=== PATIENT | male | born 1940 | race Caucasian/White ===

== ENCOUNTER 2016-12-19 18:40 | Emergency (ER) | payer MEDICARE, BC ==
[2016-12-19 18:47] VITALS: BP 150/77
[2016-12-19] MEDS ORDERED: HYDROmorphone 1 MG/ML Syringe IVPUSH ONE ×2 (19:13→20:41)
--- NOTE | 2016-12-19 19:32 | EDM.PDOC ---
[id number] 4d fell off ladder Time Seen by Provider: 12/19/16 19:00 Source of Information: Reports: Patient, Family ( and son present) History Limitations: Reports: No limitations - History of Present Illness INITIAL COMMENTS - FREE TEXT/NARRATIVE: John is a 76 yo male who presents to the ER via private vehicle after falling about 6 ft from a ladder. States this evening he was outside trying to cut down some trees and ended up slipping and falling to the ground. Denies any head trauma or loss of consciousness. States he had the wind knocked out of him and had some difficulty breathing initially. States a passerby saw him fall and assisted him with getting up. States he has a lot of discomfort to the left rib cage. States when he takes a deep breath the pain intensifies. States the pain is about a 5 out of 10 currently. He recently underwent lumbar surgery about 3 weeks ago and has been doing really well post surgery. States he was having a lot of radicular symptoms into his feet and hasn't had any since surgery. Denies any at this time as well s/p fall. Onset: today Onset Date: 12/19/16 Onset Time: 18:00 Duration: Constant Location: Reports: chest (left lateral rib cage. ) Quality: Reports: Sharp Improves with: Reports: Immobilization, Rest Worsens with: Reports: Breathing, Movement Left Chest Pain Score (Numeric/FACES): 5 - Related Data Allergies Allergy/AdvReac Type Severity Reaction Status Date / Time No Known Allergies Allergy Verified 12/19/16 18:49 Home Meds: Home Meds Acetaminophen [Tylenol Extra Strength] 500 mg PO QID 12/19/16 [History] Cholecalciferol (Vitamin D3) [Vitamin D] 5,000 unit PO DAILY 12/19/16 [History] Ibuprofen [Advil] 1 tab PO QID 12/19/16 [History] Past Medical History - Past Health History Medical/Surgical History: Denies Medical/Surgical History Cardiovascular History: Reports: None Respiratory History: Reports: Pneumonia, recurrent Gastrointestinal History: Reports: None Musculoskeletal History: Reports: None Neurological History: Reports: None Endocrine/Metabolic History: Reports: Vitamin D deficiency Dermatologic History: Reports: Eczema - Past Surgical History GI Surgical History: Reports: Colonoscopy Neurological Surgical History: Reports: Discectomy, Lumbar spine Musculoskeletal Surgical History: Reports: Other (see below) Other Musculoskeletal Surgeries/Procedures:: lumbar disc surgery Social & Family History - Family History Family Medical History: Noncontributory - Tobacco Use Smoking Status *Q: Former Smoker Years of Tobacco use: 20 Used Tobacco, but Quit: Yes Month Tobacco Last Used: 30 yrs - Caffeine Use Caffeine Use: Reports: Coffee - Recreational Drug Use Recreational Drug Use: Yes ED ROS GENERAL - Review of Systems Review Of Systems: See Below Constitutional: Reports: no symptoms HEENT: Reports: No symptoms Respiratory: Reports: Shortness of Breath, Pleuritic Chest Pain Cardiovascular: Reports: No symptoms Endocrine: Reports: no symptoms GI/Abdominal: Reports: No symptoms : Reports: no symptoms Musculoskeletal: Reports: other (rib pain). Denies: back pain, leg pain Neurological: Reports: Difficulty Walking. Denies: Headache, Numbness, Paresthesia, Tingling Psychiatric: Reports: No symptoms ED EXAM, GENERAL - Physical Exam Exam: See Below Exam Limited By: No limitations General Appearance: alert, mild distress Eye Exam: bilateral eye: EOMI, normal inspection Ears: normal external exam, normal canal, hearing grossly normal, normal TMs Nose: normal inspection, no blood Throat/Mouth: Normal inspection, Normal lips, Normal gums, Normal oropharynx, Normal voice, No airway compromise Head: atraumatic, normocephalic. No: facial swelling, facial tenderness Neck: normal inspection, supple. No: tender lateral, tender midline Respiratory/Chest: no respiratory distress, lungs clear, normal breath sounds, no accessory muscle use, other (tenderness with palpation to lower left lateral rib cage. ). No: splinting GI/Abdominal: normal bowel sounds, soft, non tender, no organomegaly, no abnormal bruit, no mass Extremities: normal inspection Neurological: alert, oriented, normal cognition, no motor/sensory deficits Psychiatric: normal affect, normal mood Skin Exam: Warm, Dry, Intact, Normal color, No rash, Other (small abrasion to left anterior rib cage) Course - Vital Signs Last Recorded V/S: Last Vital Signs Temp 98.3 F 12/19/16 18:44 Pulse 69 12/19/16 18:44 Resp 20 12/19/16 18:44 BP 150/77 H 12/19/16 18:44 Pulse Ox 97 12/19/16 18:44 - Orders/Labs/Meds Orders: Active Orders 24 hr Category Date Time Status Abdomen Pelvis wo Cont [CT] Stat Exams 12/19/16 19:21 Taken Chest wo Cont [CT] Stat Exams 12/19/16 19:20 Taken Labs: Laboratory Tests 12/19/16 12/19/16 Range/Units 19:03 19:03 WBC 15.4 H (5.0-10.0) 10^3/uL RBC 5.18 (4.50-6.00) 10^6/uL Hgb 16.0 (14.0-18.0) g/dL Hct 49.1 (40.0-54.0) % MCV 94.8 H (82.0-94.0) fL MCH 30.9 (27.0-32.0) pg MCHC 32.6 L (33.0-38.0) g/dL RDW Coeff of Floyd 14.9 (11.0-15.0) % Plt Count 413 H (150-400) 10^3/uL Neut % (Auto) 82.9 (35-85) % Lymph % (Auto) 8.3 L (10-55) % Robeson % (Auto) 4.8 (0-16) % Eos % (Auto) 3.3 (0-5) % Baso % (Auto) 0.7 (0-3) % Neut # (Auto) 12.74 H (1.80-7.00) 10^3/uL Lymph # (Auto) 1.28 (1.00-4.80) 10^3/uL Robeson # (Auto) 0.74 (0.00-0.80) 10^3/uL Eos # (Auto) 0.51 H (0.00-0.45) 10^3/uL Baso # (Auto) 0.10 10^3/uL Sodium 142 (136-145) mEq/L Potassium 5.3 H D (3.5-5.0) mEq/L Chloride 104 (98-106) mEq/L Carbon Dioxide 30 (21-32) mmol/L BUN 23 H (7-18) mg/dL Creatinine 1.3 (0.7-1.3) mg/dL Est Cr Clr Drug Dosing 45.31 mL/min Estimated GFR (MDRD) 53 L (>=60) mL/min Glucose 101 H (75-99) mg/dL Calcium 9.0 (8.4-10.1) mg/dL Total Bilirubin 0.3 (0.0-1.0) mg/dL AST 19 (15-37) U/L ALT 28 (12-78) U/L Alkaline Phosphatase 129 H (46-116) U/L Total Protein 7.5 (6.4-8.2) g/dL Albumin 3.8 (3.4-5.0) g/dL Meds: Medications Discontinued Medications Generic Name Dose Route Start Last Admin Trade Name Mulugeta PRN Reason Stop Dose Admin Hydromorphone HCl 0.5 mg 12/19/16 19:13 12/19/16 19:18 Dilaudid IVPUSH 12/19/16 19:14 0.5 mg ONETIME ONE Administration Hydromorphone HCl 0.5 mg 12/19/16 20:41 12/19/16 20:42 Dilaudid IVPUSH 12/19/16 20:42 0.5 mg ONETIME ONE Administration Departure - Departure Time of Disposition: 21:10 Disposition: Home, Self-Care 01 Condition: good Clinical Impression: Contusion of rib on left side Qualifiers: Encounter type: initial encounter Qualified Code(s): S20.212A - Contusion of left front wall of thorax, initial encounter Fall from ladder Qualifiers: Encounter type: initial encounter Qualified Code(s): W11.XXXA - Fall on and from ladder, initial encounter Instructions: Rib Contusion Referrals: Ney Ellis MD [Primary Care Provider] - 1 Week Forms: ED Department Discharge Additional Instructions: 1) Recommend resting tonight. 2) Apply ice to left side along ribs, 20 minutes at a time 3) Encourage taking deep breaths as tolerated. 4) Use walker at home to refrain from falling while on medications 5) Use pain medications as directed until able to tolerate pain with deep inspirations or coughing 6) No work tomorrow and recommend taking off as well, you will be sore thru the weekend. 7) If any concerns at all, recommend returning to ER. May call since you live so far away if any questions as well [phone] 8) Please do not wrap chest with malu wrap for discomfort, will constrict expansion of lungs. 9) Advise recheck early next week with Dr. Ellis - Problem List & Annotations (1) Contusion of rib on left side SNOMED Code(s): 039779884 Code(s): S20.212A - CONTUSION OF LEFT FRONT WALL OF THORAX, INITIAL ENCOUNTER Status: Acute Qualifiers: Encounter type: initial encounter Qualified Code(s): S20.212A - Contusion of left front wall of thorax, initial encounter (2) Fall from ladder SNOMED Code(s): 11748593, 600362277 Code(s): W11.XXXA - FALL ON AND FROM LADDER, INITIAL ENCOUNTER Status: Acute Qualifiers: Encounter type: initial encounter Qualified Code(s): W11.XXXA - Fall on and from ladder, initial encounter - Problem List Review Problem List Initiated/Reviewed/Updated: Yes - My Orders Last 24 Hours: My Active Orders 12/19/16 19:20 Chest wo Cont [CT] Stat 12/19/16 19:21 Abdomen Pelvis wo Cont [CT] Stat - Assessment/Plan Last 24 Hours: My Active Orders 12/19/16 19:20 Chest wo Cont [CT] Stat 12/19/16 19:21 Abdomen Pelvis wo Cont [CT] Stat Plan: Radiologist confirmed no rib fracture or acute injuries noted on CT scan. Lung nodules noted and recommend follow up in 1 year. Will have recheck with Dr. Ellis next week as well. Laboratory work was reviewed. John was given intravenous Dilaudid 0.5mg twice in the ER and did quite well. We were able to get him up ambulating tonight. With certain movements and positional changes he still has some left sided discomfort but tolerable. Discussed further treatment and he requested going home tonight. His felt this would be acceptable as well. Will discharge at this time and he will use his pain medications as directed from recent back surgery.
== END 2016-12-19 21:36 | disposition home or self-care (01) ==
LOC: CC.ED 18:40
DX: S20.212A Contusion of left front wall of thorax, initial encounter (principal); Z87.01 Personal history of pneumonia (recurrent); Z79.899 Other long term (current) drug therapy; Z87.891 Personal history of nicotine dependence; W11.XXXA Fall on and from ladder, initial encounter
CPT/HCPCS: 36415; 71250; 74176; 80053; 85025; 96374; 96376; 99284; J1170

== ENCOUNTER 2017-01-24 11:10 | Inpatient (IN) | payer MEDICARE, BC ==
--- NOTE | 2017-01-24 11:42 | EDM.PDOC ---
ED HPI GENERAL MEDICAL PROBLEM - General Chief Complaint: Chest Pain Stated Complaint: chest pain Time Seen by Provider: 01/24/17 11:36 Source of Information: Reports: Patient, Family () History Limitations: Reports: No Limitations - History of Present Illness INITIAL COMMENTS - FREE TEXT/NARRATIVE: TRINA IS A 76 YO MALE WHO PRESENTS TO THE ER WITH COMPLAINTS OF LEFT CHEST PAIN. STATES THE PAIN STARTED IN HIS LEFT CHEST A COUPLE DAYS AGO. ADMITS HE HAS BEEN HAVING HIGH BLOOD PRESSURE READINGS RECENTLY WELL. STATES THE PAIN GETS WORTH WITH AMBULATION. ADMITS HE DOES HAVE SOME DISCOMFORT INTO HIS LEFT ARM WELL. HAD A FALL FROM A LADDER ABOUT A MONTH AGO AND HAD LEFT LATERAL RIB PAIN BUT DOESN'T THINK THIS HAS ANYTHING TO DO WITH IT. STATES WHILE AT REST THE PAIN ISN'T SO BAD TODAY, WHILE AT REST HE STATES HIS PAIN IS 2 OUT OF 10. IF UP AND WALKING WILL GET TO A 6-7 OUT OF 10. ADMITS HE TOOK 2 ADVIL THIS MORNING WHICH HELPED. HAS NOTICED HIM TO NOT BE ACTIVE THE LAST FEW DAYS. IF HE TAKES A DEEP BREATH IT WILL CAUSE THE PAIN TO WORSEN WELL. Onset: Unknown/Unsure Location: Reports: Chest Quality: Reports: Sharp Severity: Moderate Context: Reports: Activity, Lifting Left Chest Pain Score (Numeric/FACES): 2 - Related Data Allergies Allergy/AdvReac Type Severity Reaction Status Date / Time aspirin Allergy Bleeding Verified 01/24/17 12:00 Home Meds: Home Meds Acetaminophen [Tylenol Extra Strength] 500 mg PO QID 12/19/16 [History] Cholecalciferol (Vitamin D3) [Vitamin D] 5,000 unit PO DAILY 12/19/16 [History] Ibuprofen [Advil] 1 tab PO QID 12/19/16 [History] Past Medical History - Past Health History Medical/Surgical History: Denies Medical/Surgical History Cardiovascular History: Reports: None Respiratory History: Reports: Pneumonia, Recurrent Gastrointestinal History: Reports: None Musculoskeletal History: Reports: None Neurological History: Reports: None Endocrine/Metabolic History: Reports: Vitamin D Deficiency Dermatologic History: Reports: Eczema - Past Surgical History Neurological Surgical History: Reports: Discectomy, Lumbar Spine Musculoskeletal Surgical History: Reports: Other (See Below) Social & Family History - Family History Family Medical History: Noncontributory - Tobacco Use Smoking Status *Q: Former Smoker Years of Tobacco use: 20 Used Tobacco, but Quit: Yes Month Tobacco Last Used: 30 yrs - Caffeine Use Caffeine Use: Reports: Coffee - Recreational Drug Use Recreational Drug Use: Yes ED ROS GENERAL - Review of Systems Review Of Systems: See Below Constitutional: Reports: Weakness, Decreased Appetite. Denies: Fever, Chills, Night Sweats, Diaphoresis HEENT: Reports: No Symptoms Respiratory: Denies: Shortness of Breath, Wheezing, Cough Cardiovascular: Reports: Chest Pain, Blood Pressure Problem (JUST RECENTLY). Denies: Dyspnea on Exertion, Edema, Lightheadedness, Palpitations GI/Abdominal: Reports: No Symptoms ED EXAM, GENERAL - Physical Exam Exam: See Below Exam Limited By: No Limitations General Appearance: Alert, No Apparent Distress Ears: Normal External Exam, Normal Canal, Hearing Grossly Normal, Normal TMs Nose: Normal Inspection, No Blood Throat/Mouth: Normal Inspection, Normal Lips, Normal Oropharynx, No Airway Compromise Head: Atraumatic, Normocephalic Neck: Normal Inspection, Supple, Non-Tender Respiratory/Chest: No Respiratory Distress, Lungs Clear, Normal Breath Sounds, No Accessory Muscle Use Cardiovascular: Normal Peripheral Pulses, Regular Rate, Rhythm, No Edema, No Murmur GI/Abdominal: Normal Bowel Sounds, Soft, Non-Tender, No Organomegaly, No Distention, No Abnormal Bruit Extremities: Normal Inspection Neurological: Alert, Oriented, Normal Cognition, No Motor/Sensory Deficits Psychiatric: Normal Affect, Normal Mood Skin Exam: Warm, Dry, Intact, Normal Color, No Rash EKG INTERPRETATION EKG Date: 01/24/17 Time: 11:15 Rhythm: NSR Comparison: NA - no prior EKG Course - Vital Signs Last Recorded V/S: Last Vital Signs Temp 96.6 F 01/24/17 11:49 Pulse 75 01/24/17 12:25 Resp 20 01/24/17 11:49 BP 167/87 H 01/24/17 12:25 Pulse Ox 97 01/24/17 11:49 - Orders/Labs/Meds Orders: Active Orders 24 hr Category Date Time Status CTA Chest W WO Contrast [Ang Chest] [CT] Stat Exams 01/24/17 14:06 Ordered Chest 2V [CR] Routine Exams 01/24/17 Taken Labs: Laboratory Tests 01/24/17 01/24/17 01/24/17 Range/Units 11:50 11:50 11:50 WBC 13.6 H (5.0-10.0) 10^3/uL RBC 5.28 (4.50-6.00) 10^6/uL Hgb 16.1 (14.0-18.0) g/dL Hct 50.0 (40.0-54.0) % MCV 94.7 H (82.0-94.0) fL MCH 30.5 (27.0-32.0) pg MCHC 32.2 L (33.0-38.0) g/dL RDW Coeff of Floyd 15.1 H (11.0-15.0) % Plt Count 350 (150-400) 10^3/uL MPV 10.3 fL PT 11.5 (9.7-12.3) SEC INR 1.06 (0.92-1.18) APTT 29.7 (24.5-30.9) SEC D-Dimer, Quantitative (0.00-0.50) Sodium 140 (136-145) mEq/L Potassium 5.4 H (3.5-5.0) mEq/L Chloride 104 (98-106) mEq/L Carbon Dioxide 31 (21-32) mmol/L BUN 24 H (7-18) mg/dL Creatinine 1.3 (0.7-1.3) mg/dL Est Cr Clr Drug Dosing 45.07 mL/min Estimated GFR (MDRD) 53 L (>=60) mL/min Glucose 95 (75-99) mg/dL Calcium 9.2 (8.4-10.1) mg/dL Lactate Dehydrogenase 173 (100-190) U/L Creatine Kinase 38 (35-232) U/L Troponin I < 0.017 (0.00-0.06) ng/mL C-Reactive Protein (0.2-0.8) mg/dL 01/24/17 01/24/17 Range/Units 13:07 13:07 WBC (5.0-10.0) 10^3/uL RBC (4.50-6.00) 10^6/uL Hgb (14.0-18.0) g/dL Hct (40.0-54.0) % MCV (82.0-94.0) fL MCH (27.0-32.0) pg MCHC (33.0-38.0) g/dL RDW Coeff of Floyd (11.0-15.0) % Plt Count (150-400) 10^3/uL MPV fL PT (9.7-12.3) SEC INR (0.92-1.18) APTT (24.5-30.9) SEC D-Dimer, Quantitative 1.18 H (0.00-0.50) Sodium (136-145) mEq/L Potassium (3.5-5.0) mEq/L Chloride (98-106) mEq/L Carbon Dioxide (21-32) mmol/L BUN (7-18) mg/dL Creatinine (0.7-1.3) mg/dL Est Cr Clr Drug Dosing mL/min Estimated GFR (MDRD) (>=60) mL/min Glucose (75-99) mg/dL Calcium (8.4-10.1) mg/dL Lactate Dehydrogenase (100-190) U/L Creatine Kinase (35-232) U/L Troponin I (0.00-0.06) ng/mL C-Reactive Protein < 0.2 L (0.2-0.8) mg/dL Meds: Medications Discontinued Medications Generic Name Dose Route Start Last Admin Trade Name Freq PRN Reason Stop Dose Admin Iopamidol 100 ml 01/24/17 14:13 01/24/17 14:30 Isovue-370 (76%) IVPUSH 01/24/17 14:14 100 ml ONETIME ONE Administration Metoprolol Tartrate 25 mg 01/24/17 12:09 01/24/17 12:25 Lopressor PO 01/24/17 12:10 25 mg ONETIME ONE Administration - Re-Assessments/Exams Free Text/Narrative Re-Assessment/Exam: 01/24/17 14:36 Initial cardiac enzymes were negative. EKG showed NSR. Chest x-ray appeared to be stable. Consulted with Dr. Ellis and recommended d-dimer and crp labs to be done. Departure - Departure Time of Disposition: 14:36 Disposition: Admitted As Inpatient 64 Clinical Impression: Chest pain of uncertain etiology, Elevated BP without diagnosis of hypertension - Problem List & Annotations (1) Chest pain of uncertain etiology SNOMED Code(s): 27670045 Code(s): R07.89 - OTHER CHEST PAIN Status: Acute Current Visit: Yes (2) Elevated BP without diagnosis of hypertension SNOMED Code(s): 161580656 Code(s): R03.0 - ELEVATED BLOOD-PRESSURE READING, W/O DIAGNOSIS OF HTN Status: Acute Current Visit: Yes - Problem List Review Problem List Initiated/Reviewed/Updated: Yes - My Orders Last 24 Hours: My Active Orders 01/24/17 Chest 2V [CR] Routine 01/24/17 14:06 CTA Chest W WO Contrast [Ang Chest] [CT] Stat - Assessment/Plan Admission H&P: Please use this note as an admission H&P Last 24 Hours: My Active Orders 01/24/17 Chest 2V [CR] Routine 01/24/17 14:06 CTA Chest W WO Contrast [Ang Chest] [CT] Stat Plan: Will admit to Dr. Ellis's services under acute care. Dr. Ellis was consulted and he felt admission to acute services with telemetry was appropriate. Advised starting IV Azithromycin and SoluMedrol. Will proceed with CTA of the Chest as well secondary to elevated d-dimer. Trina and his were both advised of current plan and both agreed with admission.
[2017-01-24] MEDS ORDERED: Metoprolol Tartrate 25 MG Tab PO ONE (12:09)
[2017-01-24 12:26] LABS: CHLORIDE,CL 104 mEq/L (98-106); SODIUM,NA 140 mEq/L (136-145)
[2017-01-24] MEDS ORDERED: Iopamidol 755 Mg/ML 100 ML Bottle IVPUSH ONE (14:13)
[2017-01-24] MEDS ORDERED: Acetaminophen 325 MG Tab PO PRN (14:49)
[2017-01-24] MEDS ORDERED: Sodium Chloride 0.9% 10 ML Syringe FLUSH PRN (14:49)
[2017-01-24] MEDS ORDERED: Enoxaparin 30 MG/0.3 ML Syringe SUBCUT SCH (15:00)
[2017-01-24] MEDS ORDERED: methylPREDNISolone Sodium Succinate 125 MG/2 ML SDV IVPUSH SCH (15:00)
[2017-01-24] MEDS ORDERED: Azithromycin 500 MG in Sodium Chloride 0.9% 250 ML IV SCH (15:00)
[2017-01-24] MEDS ORDERED: Ondansetron 4 MG/2 ML SDV IVPUSH PRN (15:33)
[2017-01-24] MEDS ORDERED: Sodium Chloride 0.9% 1,000 ML IV SCH (15:45)
[2017-01-24] MEDS: Ketorolac 30 MG/ML SDV IVPUSH PRN (16:00)
[2017-01-24] MEDS: Metoprolol Tartrate 25 MG Tab PO SCH (19:49)
[2017-01-24] MEDS: Ibuprofen 200 MG Tab PO PRN (19:50)
[2017-01-25] MEDS: Ibuprofen 200 MG Tab PO PRN ×2 (06:44→12:45)
[2017-01-25 07:34] LABS: CHLORIDE,CL 107 mEq/L (98-106); SODIUM,NA 142 mEq/L (136-145)
[2017-01-25] MEDS: Ketorolac 30 MG/ML SDV IVPUSH PRN (08:05)
[2017-01-25] MEDS: Metoprolol Tartrate 25 MG Tab PO SCH (08:08)
[2017-01-25 11:34] VITALS: BP 160/91
--- NOTE | 2017-01-26 07:26 | DISCH ---
HOSPITAL COURSE: John Rome came in with chest pain yesterday. CT of the chest which showed multiple healing rib fractures. There were no pulmonary emboli. He was given some Toradol and at the time of discharge, he said he was feeling fine. Neck was supple. Chest clear. Cardiac sounds are good. We did start him on metoprolol 25 b.i.d., because his blood pressure was up. At time of discharge that was down. Rest of lab, CBC, mildly elevated white count. Panel-8 looked good. Creatinine little bit elevated. Troponins were good. C-reactive protein was good. D-dimer was 1.18, but a negative CT angio. DISPOSITION: The patient is now discharged home. We will see him back clinic in a couple of weeks. DISCHARGE MEDICATIONS: Home medications plus metoprolol 25 p.o. b.i.d. DISCHARGE DIAGNOSIS: 1. CHEST PAIN, CHEST WALL FRACTURED RIBS. 2. HYPERTENSION. RYAN/ROWENA /[id number]
== END 2017-01-25 14:30 | disposition home or self-care (01) | DRG 313 ==
LOC: CC.ED 11:10 → CC.MS 14:21 → UNDOADMIN 14:21 → CC.MS 14:49
PROVIDERS: ADMIT Physician Assistant Medical; ATTEND General Practice
DX: R07.89 Other chest pain (principal); I10 Essential (primary) hypertension; S22.49XD Multiple fractures of ribs, unspecified side, subsequent encounter for fracture with routine healing; W11.XXXD Fall on and from ladder, subsequent encounter; E55.9 Vitamin D deficiency, unspecified; Z87.891 Personal history of nicotine dependence; Z79.899 Other long term (current) drug therapy; Z88.6 Allergy status to analgesic agent
CPT/HCPCS: 36415; 71020; 71275; 80048; 82550; 83615; 84484; 85027; 85379; 85610; 85730; 86140; 93005; 99285; A9270; Q9967 ×2; 85025; 93010; J1650; J1885; J7030

== ENCOUNTER 2017-11-27 13:55 | Observation (INO) | payer MEDICARE, BC ==
[2017-11-27] MEDS ORDERED: Magnesium Hydroxide 400 MG/5 ML Susp 30 ML Cup PO PRN (15:05)
[2017-11-27] MEDS ORDERED: Zolpidem 5 MG Tab PO PRN (15:05)
[2017-11-27] MEDS ORDERED: Sodium Chloride 0.9% 10 ML Syringe FLUSH PRN (15:05)
[2017-11-27] MEDS ORDERED: Acetaminophen 325 MG Tab PO PRN (15:05)
[2017-11-27] MEDS ORDERED: Metoprolol Tartrate 5 MG/5 ML SDV IVPUSH ONE (15:23)
[2017-11-27] MEDS ORDERED: Calcium Carbonate 500 MG Tab.Chew PO PRN (15:24)
[2017-11-27] MEDS ORDERED: Iopamidol 755 Mg/ML 100 ML Bottle IVPUSH ONE (15:53)
[2017-11-27] MEDS: Enoxaparin 40 MG/0.4 ML Syringe SUBCUT SCH (17:10)
[2017-11-27] MEDS ORDERED: Ibuprofen 200 MG Tab PO SCH (20:00)
[2017-11-27] MEDS: DONEPEZIL 5 MG PO SCH (20:06)
[2017-11-27] MEDS: Metoprolol Tartrate 50 MG Tab PO SCH (20:06)
[2017-11-27] MEDS: Ibuprofen 200 MG Tab PO PRN (22:24)
[2017-11-28] MEDS: cloNIDine 0.1 MG Tab PO PRN ×2 (03:57→08:11)
[2017-11-28] MEDS: Metoprolol Tartrate 50 MG Tab PO SCH ×2 (08:10→19:11)
[2017-11-28] MEDS: Cholecalciferol (Vitamin D3) 1,000 Unit Tab PO SCH (08:11)
[2017-11-28] MEDS ORDERED: Ondansetron 4 MG/2 ML SDV IVPUSH PRN (08:15)
[2017-11-28] MEDS ORDERED: Ondansetron 4 MG Tab.DIS PO PRN (08:15)
--- NOTE | 2017-11-28 11:48 | PN ---
DATE: 11/28/2017 S: John Rome came in with acute hypertensive crisis yesterday. He also is polycythemic. O: NECK: Supple. CHEST: Clear. CARDIAC: Sounds are good. ASSESSMENT: BLOOD PRESSURE IS MUCH BETTER TODAY. WE DID DO A PHLEBOTOMY ON HIM YESTERDAY TO BRING THAT HEMOGLOBIN DOWN. HE IS HAVING A CTA OF HIS KIDNEYS TODAY. I SUSPECT HE MAY HAVE RENAL ARTERY STENOSIS, WHICH WILL CERTAINLY ACCOUNT FOR THE POLYCYTHEMIA AND HYPERTENSIVE CRISIS. RYAN/ROWENA /[id number]
[2017-11-28] MEDS: cloNIDine 0.1 MG Tab PO SCH ×3 (12:17→19:10)
[2017-11-28] MEDS: Enoxaparin 40 MG/0.4 ML Syringe SUBCUT SCH (16:43)
[2017-11-28] MEDS: DONEPEZIL 5 MG PO SCH (19:07)
[2017-11-29] MEDS: Ibuprofen 200 MG Tab PO PRN (02:45)
[2017-11-29] MEDS: Metoprolol Tartrate 50 MG Tab PO SCH (07:55)
[2017-11-29] MEDS: Cholecalciferol (Vitamin D3) 1,000 Unit Tab PO SCH (07:59)
[2017-11-29] MEDS: cloNIDine 0.1 MG Tab PO SCH (07:59)
[2017-11-29 08:00] VITALS: BP 154/64
--- NOTE | 2017-11-29 11:32 | DISCH ---
HOSPITAL COURSE: This is a 77-year-old gentleman who came in with acute hypertensive crisis. Admitted to the hospital and started on clonidine. I did do a CTA of abdomen with runoff. He does not have any renal artery stenosis. He has some stenotic problems from atherosclerotic vascular disease in his lower extremities. At the time of discharge, neck was supple, chest clear, cardiac sounds are good. Blood pressure has been much better on the clonidine and he is ready to go home. Lab here in the hospital, he had a hemoglobin of 20; so, we did go ahead and do a phlebotomy and we will follow that next week. Panel-8 looked good. Urinalysis is clear. DISPOSITION: The patient is discharged home. We will see him back in the clinic next week. DISCHARGE MEDICATIONS: Home medications plus clonidine 0.1 t.i.d. DISCHARGE DIAGNOSIS: 1. HYPERTENSION. 2. POLCYTHEMIA. 3. EARLY DEMENTIA. RYAN/ROWENA /[id number]
== END 2017-11-29 10:00 | disposition home or self-care (01) ==
LOC: CC.MS 13:55 → UNDOADMOB 13:55 → CC.MS 15:05
PROVIDERS: ADMIT General Practice; ATTEND General Practice
DX: I10 Essential (primary) hypertension (principal); D75.1 Secondary polycythemia; F03.90 Unspecified dementia, unspecified severity, without behavioral disturbance, psychotic disturbance, mood disturbance, and anxiety; N40.0 Benign prostatic hyperplasia without lower urinary tract symptoms; E78.5 Hyperlipidemia, unspecified; Z88.8 Allergy status to other drugs, medicaments and biological substances; Z79.899 Other long term (current) drug therapy
CPT/HCPCS: 36415; 71046; 75635; 80053; 81001; 83735; 84244; 84443; 85025; 85610; 93005; 96372; 96374; 96375; 99195; A9270-GY; G0378; J1650; J2405; J3490; Q9967